=== PATIENT | male | born 1965 | race Caucasian/White ===

== ENCOUNTER 2023-04-20 11:18 | Emergency (ER) | payer BC, OTHER ==
[2023-04-20] MEDS ORDERED: Ketorolac Tromethamine 30 MG/ML VIAL ONE (11:48)
== END 2023-04-20 12:05 | disposition home or self-care (01) ==
LOC: BURERS 11:18
DX: S29.9XXA Unspecified injury of thorax, initial encounter (principal); M54.50 Low back pain, unspecified; I10 Essential (primary) hypertension; F17.290 Nicotine dependence, other tobacco product, uncomplicated; V89.2XXA Person injured in unspecified motor-vehicle accident, traffic, initial encounter
CPT/HCPCS: 96372; 99284; J1885

== ENCOUNTER 2023-10-14 15:28 | Outpatient (CLI) | payer BC | END 2023-10-14 15:29 | disposition home or self-care (01) | LOC: BURRAD 15:28 | PROVIDERS: ATTEND Physician Assistant Surgical | DX: M54.50 Low back pain, unspecified (principal); M41.9 Scoliosis, unspecified | CPT/HCPCS: 72100 ==